=== PATIENT | male | born 2000 | race African-American/Black ===

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

== ENCOUNTER 2022-02-02 14:24 | Emergency (ER) | payer OTHER, SELFPAY | END 2022-02-02 14:45 | disposition home or self-care (01) | LOC: BURERS 14:24 | DX: B34.9 Viral infection, unspecified (principal) | CPT/HCPCS: 99283 ==